=== PATIENT | female | born 1975 | race Caucasian/White ===

== ENCOUNTER 2018-04-16 18:12 | Emergency (ER) | payer MEDICARE, OTHER ==
[~2018-04-16] VITALS: Ht 170.2 cm; Wt 59.0 kg
[2018-04-16] MEDS ORDERED: GABAPENTIN800 MG PO (18:47)
[2018-04-16] MEDS ORDERED: ESCITALOPRAM OX10 MG PO (18:47)
[2018-04-16] MEDS ORDERED: BUSPIRONE HCL30 MG PO (18:48)
[2018-04-16] MEDS ORDERED: ACID CONTROL150 MG PO (18:49)
[2018-04-16] MEDS ORDERED: SEROQUEL400 MG PO (18:50)
[2018-04-16] MEDS ORDERED: PRAVASTATIN SOD20 MG PO (18:51)
[2018-04-16] MEDS ORDERED: OXYBUTYNIN CHLOR5 MG PO (18:54)
[2018-04-16] MEDS ORDERED: LAMICTAL200 MG PO (18:55)
[2018-04-16] MEDS ORDERED: ATIVAN2 MG PO (18:55)
[2018-04-16] MEDS ORDERED: CLONIDINE HCL0.1 MG PO (18:56)
[2018-04-16] MEDS ORDERED: OMEPRAZOLE20 MG PO (18:56)
[2018-04-16] MEDS ORDERED: ASPIRIN EC81 MG PO (18:57)
--- OUTSIDE RECORDS SUMMARY | 2018-04-16 20:16 | XMS ---
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 [place] has no Care Guidelines for this patient. Gilberto VISIT COUNT (12 MO.) 3 [facility] ED 1 KAROL Sloan TOTAL 4 NOTE: Visits indicate total known visits. ED/C VISIT TRACKING (12 MO.) 04/16/2018 18:13 [facility] [place] TYPE: Emergency COMPLAINT: - L WRIST PAIN,INJURY 10/21/2017 18:16 [facility] TYPE: Emergency DIAGNOSES: - Sprain of unspecified part of left wrist and hand, initial encounter - left hand pain - Hand Injury 10/20/2017 14:38 [facility] TYPE: Emergency DIAGNOSES: - Animal Bite - Open bite of right hand, initial encounter - Bitten by dog, initial encounter - Canine Bite 09/25/2017 23:39 [facility] TYPE: Emergency DIAGNOSES: - Overdose- Accidental - OD on pain meds - Poisoning by unspecified narcotics, accidental (unintentional), initial encounter INPATIENT VISIT TRACKING (12 MO.) No inpatient visits to display in this time frame [email or web address]
== END 2018-04-16 20:25 | disposition home or self-care (01) ==
LOC: ED 18:12
DX: S63.502A Unspecified sprain of left wrist, initial encounter (principal); S16.1XXA Strain of muscle, fascia and tendon at neck level, initial encounter; F17.200 Nicotine dependence, unspecified, uncomplicated; Z88.0 Allergy status to penicillin; Z88.8 Allergy status to other drugs, medicaments and biological substances; F41.9 Anxiety disorder, unspecified; F32.9 Major depressive disorder, single episode, unspecified; Z79.82 Long term (current) use of aspirin; Z79.899 Other long term (current) drug therapy; W01.0XXA Fall on same level from slipping, tripping and stumbling without subsequent striking against object, initial encounter
CPT/HCPCS: 72040; 73110; 99283